=== PATIENT | female | born 1995 | race African-American/Black ===

== ENCOUNTER 2018-04-13 21:03 | Emergency (ER) | payer BC ==
[~2018-04-13] VITALS: Ht 160 cm; Wt 49.9 kg
--- NOTE | ~2018-04-13 | EKG ---
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
[2018-04-13] MEDS ORDERED: ATIVAN0.5 MG PO (21:28)
[2018-04-13] MEDS ORDERED: ONDANSETRON HCL4 M2 PO (22:15)
[2018-04-13 22:18] VITALS: BP 112/75
== END 2018-04-13 22:19 | disposition home or self-care (01) ==
LOC: ER 21:03
DX: F41.9 Anxiety disorder, unspecified (principal); F41.0 Panic disorder [episodic paroxysmal anxiety]

== ENCOUNTER 2018-06-30 09:19 | Emergency (ER) | payer BC ==
[~2018-06-30] VITALS: Ht 160 cm; Wt 52.2 kg
[~2018-06-30 09:19] MED LIST: ATIVAN0.5 MG PO; ONDANSETRON HCL4 M2 PO
[2018-06-30 10:20] LABS: CALCIUM 9.6 mg/dL (8.5-10.1); POTASSIUM 3.2 mmol/L (3.5-5.1)
[2018-06-30 10:48] LABS: AMP/METHAMP Negative (Negative); BARBITURATES Negative (Negative); BENZODIAZEPINES Negative (Negative); COCAINE Negative (Negative); METHADONE Negative (Negative); OPIATES Negative (Negative); PCP Negative (Negative)
[2018-06-30 10:50] LABS: HEMATOCRIT 34.6 % (37.0-47.0); HEMOGLOBIN 10.9 gm/dL (12.0-15.0); MCH 23.5 pg (26.0-34.0); MCHC 31.4 g/dL (28.0-37.0); MCV 74.8 fL (80.0-100.0); RBC 4.63 mil/uL (4.20-5.00); WBC 6.9 thou/uL (4.0-11.0)
[2018-06-30] MEDS ORDERED: XANAX 0.5 MG0.5 M1 PO (14:56)
[2018-06-30] MEDS ORDERED: ZOFRAN ODT4 MG PO (14:57)
[2018-06-30 15:16] VITALS: BP 107/63
== END 2018-06-30 15:18 | disposition home or self-care (01) ==
LOC: ER 09:19
PROVIDERS: Emergency Medicine
DX: R94.6 Abnormal results of thyroid function studies (principal); F41.9 Anxiety disorder, unspecified

== ENCOUNTER 2020-08-26 12:10 | Emergency (ER) | payer OTHER ==
[~2020-08-26] VITALS: Ht 160 cm; Wt 54.4 kg
[~2020-08-26 12:10] MED LIST changes: +XANAX 0.5 MG0.5 M1 PO; +ZOFRAN ODT4 MG PO
[2020-08-26 13:01] LABS: HEMATOCRIT 30.6 % (37.0-47.0); HEMOGLOBIN 9.7 gm/dL (12.0-15.0); MCH 22.1 pg (26.0-34.0); MCHC 31.7 g/dL (28.0-37.0); MCV 69.8 fL (80.0-100.0); PLATELET COUNT 154 thou/uL (150-400); RBC 4.39 mil/uL (4.20-5.00); RDW 23.6 % (10.5-14.5); WBC 3.2 thou/uL (4.0-11.0)
[2020-08-26 13:24] LABS: ALBUMIN 3.9 g/dL (3.4-5.0); ANION GAP 11 mmol/L (7-16); BUN 10 mg/dL (7-18); CALCIUM 8.9 mg/dL (8.5-10.1); CHLORIDE 101 mmol/L (98-107); CO2 27 mmol/L (21-32); CREATININE 0.8 mg/dL (0.6-1.0); GLUCOSE 95 mg/dL (74-106); POTASSIUM 3.5 mmol/L (3.5-5.1); SGOT 39 U/L (15-37); SGPT 34 U/L (30-65); SODIUM 139 mmol/L (136-145); TOTAL BILIRUBIN 0.2 mg/dL (0.2-1.0); TOTAL PROTEIN 8.4 g/dL (6.4-8.2)
[2020-08-26 13:43] LABS: SALICYLATE 3.6 mg/dL (2.8-20.0)
[2020-08-26 13:57] LABS: URINE BILIRUBIN NEGATIVE (Negative); URINE BLOOD 1+ (Negative); URINE CLARITY CLEAR; URINE COLOR YELLOW; URINE GLUCOSE-RANDOM* NEGATIVE (Negative); URINE KETONES NEGATIVE (Negative); URINE LEUKOCYTES-REFLEX TRACE (Negative); URINE NITRITE-REFLEX NEGATIVE (Negative); URINE PROTEIN (DIPSTICK) 2+ (Negative); URINE UROBILINOGEN 0.2 E.U./dl (0.2-1.0)
[2020-08-26 13:59] LABS: ABSOLUTE NEUTROPHILS 1.2 thou/uL (1.4-8.2); ANISOCYTOSIS 1+; HYPOCHROMASIA 1+; MICROCYTES 2+; PLATELET ESTIMATE NORMAL
[2020-08-26 14:05] LABS: AMP/METHAMP Negative (Negative); BARBITURATES Negative (Negative); BENZODIAZEPINES Negative (Negative); COCAINE Negative (Negative); METHADONE Negative (Negative); OPIATES Negative (Negative); PCP Negative (Negative)
[2020-08-26 14:07] LABS: SQUAMOUS 4-10 Moderate /LPF (0-3)
[2020-08-26 14:08] LABS: BACTERIA-REFLEX 1-9 Few /HPF (None Seen); CASTS None Seen /LPF (None Seen); CRYSTALS None Seen /LPF (None Seen); URINE RBC 0-2 Rare /HPF (0-2); URINE WBC-REFLEX 0-5 Rare /HPF (0-5)
--- NOTE | 2020-08-26 16:07 | EKG ---
[address] [address] [place] [address] ELECTROCARDIOGRAM REPORT Name: AUTUMN SANCHEZ [facility] [id number] Admission: 08/26/20 Attend Phys: Discharge: Date of : [birth year] Report #: [id number] 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
[2020-08-27 16:41] VITALS: BP 133/80
== END 2020-08-27 16:41 | disposition still patient (30) ==
LOC: ER 12:10
PROVIDERS: Physician Assistant
DX: R45.851 Suicidal ideations (principal); F41.9 Anxiety disorder, unspecified; F10.129 Alcohol abuse with intoxication, unspecified; Z20.828 Contact with and (suspected) exposure to other viral communicable diseases; Y90.8 Blood alcohol level of 240 mg/100 ml or more

== ENCOUNTER 2020-10-20 03:18 | Emergency (ER) | payer OTHER ==
[~2020-10-20] VITALS: Ht 160 cm; Wt 59.0 kg
[2020-10-20 04:25] LABS: RBC 4.15 mil/uL (4.20-5.00); WBC 6.2 thou/uL (4.0-11.0)
[2020-10-20 04:26] LABS: HEMATOCRIT 29.3 % (37.0-47.0); HEMOGLOBIN 9.1 gm/dL (12.0-15.0); MCHC 31.1 g/dL (28.0-37.0); MCV 70.7 fL (80.0-100.0); PLATELET COUNT 229 thou/uL (150-400); RDW 24.7 % (10.5-14.5)
[2020-10-20 04:27] LABS: ANION GAP 8 mmol/L (7-16); BUN 10 mg/dL (7-18); CALCIUM 8.3 mg/dL (8.5-10.1); CHLORIDE 106 mmol/L (98-107); CO2 27 mmol/L (21-32); CREATININE 0.9 mg/dL (0.6-1.0); GLUCOSE 88 mg/dL (74-106); POTASSIUM 3.4 mmol/L (3.5-5.1); SODIUM 141 mmol/L (136-145)
[2020-10-20 04:33] LABS: ALBUMIN 3.9 g/dL (3.4-5.0); SALICYLATE 3.1 mg/dL (2.8-20.0); SGOT 19 U/L (15-37); SGPT 21 U/L (14-59); TOTAL BILIRUBIN 0.2 mg/dL (0.2-1.0); TOTAL PROTEIN 8.4 g/dL (6.4-8.2)
[2020-10-20 05:26] LABS: URINE BILIRUBIN NEGATIVE (Negative); URINE BLOOD NEGATIVE (Negative); URINE CLARITY CLEAR; URINE COLOR YELLOW; URINE GLUCOSE-RANDOM* NEGATIVE (Negative); URINE KETONES NEGATIVE (Negative); URINE LEUKOCYTES-REFLEX NEGATIVE (Negative); URINE NITRITE-REFLEX NEGATIVE (Negative); URINE PROTEIN (DIPSTICK) TRACE (Negative); URINE SPECIFIC GRAVITY <= 1.005 (1.005-1.035); URINE UROBILINOGEN 0.2 E.U./dl (0.2-1.0)
[2020-10-20 05:31] LABS: AMP/METHAMP Negative (Negative); BARBITURATES Negative (Negative); BENZODIAZEPINES Negative (Negative); COCAINE Negative (Negative); METHADONE Negative (Negative); OPIATES Negative (Negative); PCP Negative (Negative)
[2020-10-20 05:39] LABS: ABSOLUTE NEUTROPHILS 1.6 thou/uL (1.4-8.2); ATYPICAL LYMPHS 1 %; METAMYELOCYTES 1 %; NUCLEATED RBCS 2 /100WBC
[2020-10-20 05:40] LABS: ANISOCYTOSIS 3+; HYPOCHROMASIA 2+; MICROCYTES 1+; POLYCHROMASIA 1+
[2020-10-20 08:23] VITALS: BP 121/66
== END 2020-10-20 08:29 | disposition home or self-care (01) ==
LOC: ER 03:18
PROVIDERS: Emergency Medicine
DX: F10.129 Alcohol abuse with intoxication, unspecified (principal); Y90.8 Blood alcohol level of 240 mg/100 ml or more

== ENCOUNTER 2020-12-10 05:47 | Emergency (ER) | payer OTHER ==
[~2020-12-10] VITALS: Ht 160 cm; Wt 63.5 kg
[2020-12-10 06:26] LABS: URINE BILIRUBIN NEGATIVE (Negative); URINE BLOOD TRACE (Negative); URINE CLARITY CLEAR; URINE COLOR YELLOW; URINE GLUCOSE-RANDOM* NEGATIVE (Negative); URINE KETONES NEGATIVE (Negative); URINE LEUKOCYTES-REFLEX NEGATIVE (Negative); URINE NITRITE-REFLEX NEGATIVE (Negative); URINE PROTEIN (DIPSTICK) 1+ (Negative); URINE UROBILINOGEN 0.2 E.U./dl (0.2-1.0)
[2020-12-10 06:32] LABS: AMP/METHAMP Negative (Negative); BARBITURATES Negative (Negative); BENZODIAZEPINES Negative (Negative); COCAINE Negative (Negative); METHADONE Negative (Negative); OPIATES Negative (Negative); PCP Negative (Negative)
[2020-12-10 07:01] LABS: CASTS None Seen /LPF (None Seen); SQUAMOUS 4-10 Moderate /LPF (0-3)
[2020-12-10 07:02] LABS: BACTERIA-REFLEX 1-9 Few /HPF (None Seen); CRYSTALS None Seen /LPF (None Seen); URINE RBC None Seen /HPF (NONE SEEN); URINE WBC-REFLEX 0-5 Rare /HPF (0-5)
[2020-12-10 07:03] LABS: CREATININE 0.8 mg/dL (0.6-1.0); POTASSIUM 3.7 mmol/L (3.5-5.1)
[2020-12-10 07:09] LABS: ALBUMIN 4.1 g/dL (3.4-5.0); TOTAL BILIRUBIN 0.2 mg/dL (0.2-1.0); TOTAL PROTEIN 8.7 g/dL (6.4-8.2)
[2020-12-10 07:16] LABS: HEMOGLOBIN 9.3 gm/dL (12.0-15.0); RDW 25.6 % (10.5-14.5)
[2020-12-10 07:17] LABS: HEMATOCRIT 29.3 % (37.0-47.0); MCH 21.9 pg (26.0-34.0); MCHC 31.7 g/dL (28.0-37.0); PLATELET COUNT 254 thou/uL (150-400); RBC 4.25 mil/uL (4.20-5.00); WBC 3.6 thou/uL (4.0-11.0)
[2020-12-10 09:00] LABS: ABSOLUTE NEUTROPHILS 1.5 thou/uL (1.4-8.2)
[2020-12-10 09:01] LABS: PLATELET ESTIMATE NORMAL
[2020-12-10 09:02] LABS: ANISOCYTOSIS 1+; HYPOCHROMASIA 2+; MICROCYTES 2+; POLYCHROMASIA 1+
[2020-12-10 13:48] VITALS: BP 146/87
== END 2020-12-10 13:49 | disposition home or self-care (01) ==
LOC: ER 05:47
PROVIDERS: Emergency Medicine Emergency Medical Services
DX: F10.920 Alcohol use, unspecified with intoxication, uncomplicated (principal); R45.4 Irritability and anger; Y90.8 Blood alcohol level of 240 mg/100 ml or more